=== PATIENT | male | born 1975 | race Caucasian/White ===

== ENCOUNTER 2016-09-17 04:07 | Emergency (ER) | payer OTHER ==
[~2016-09-17] VITALS: Ht 182.9 cm; Wt 138.4 kg
[~2016-09-17 04:07] MED LIST: ASPI325T PO; CARV12.5 PO; LISI-586 PO
[2016-09-17] MEDS ORDERED: CARV12.52 PO (04:21)
[2016-09-17] MEDS ORDERED: ASPI325T PO (04:21)
[2016-09-17] MEDS ORDERED: LISI20TA3 PO (04:21)
[2016-09-17 04:23] VITALS: BP_SYST 183; BP_SYST 202; BP_DIAS 117; BP_DIAS 118; PULSE 80; RESP 18; TEMP 98.4; O2SAT 97
[2016-09-17] MEDS ORDERED: SODIUM CHLORIDE 0.9% FLUSH 5 ML FLUSH IVF PRN (04:45)
[2016-09-17] MEDS ORDERED: ACETAMINOPHEN 325 MG TAB PO ONE (04:45)
[2016-09-17 05:03] VITALS: BP 160/99; PULSE 77; RESP 18; O2SAT 97
[2016-09-17 05:04] LABS: AUTOMATED NEUTROPHIL # 4.7 TH/MM3 (1.8-7.7); BASOPHIL # 0.1 TH/MM3 (0-0.2); BASOPHIL % 0.6 % (0.0-2.0); EOSINOPHIL # 0.2 TH/MM3 (0-0.4); EOSINOPHIL % 1.8 % (0.0-4.0); HEMATOCRIT 40.5 % (39.0-51.0); HEMO FLAGS DIFF FINAL; LYMPH % 37.4 % (9.0-44.0); LYMPHOCYTE # 3.3 TH/MM3 (1.0-4.8); MEAN CELL VOLUME 78.9 FL (80.0-100.0); MEAN CORPUSCULAR HEMOGLOBIN 26.1 PG (27.0-34.0); MEAN CORPUSCULAR HGB CONC 33.1 % (32.0-36.0); NEUT % 54.2 % (16.0-70.0); PLATELET COUNT 242 TH/MM3 (150-450); RED BLOOD COUNT 5.14 MIL/MM3 (4.50-5.90); RED CELL DISTRIBUTION WIDTH 13.9 % (11.6-17.2); WHITE BLOOD COUNT 8.8 TH/MM3 (4.0-11.0)
--- NOTE | 2016-09-17 05:10 | PD ---
HPI Chief Complaint: Hypertension Time Seen by Provider: 05:40 Travel History International Travel<30 days: No Contact w/Intl Traveler<30days: No Traveled to known affect area: No History of Present Illness HPI 40-year-old male presents to the emergency department by private transportation for evaluation of elevated blood pressure. Patient has noted more recently as he falls asleep he gets startled awake and is not sure what triggers this. This morning same thing occurred and he was startled awake as he was trying to fall asleep and checked his blood pressure and noticed it was very elevated. Patient took his blood pressure medications carvedilol and lisonopril-hctz and noted blood pressure remained elevated so decided to come to the emergency room for evaluation. Patient states that he was admitted in March and underwent a cardiac catheterization which revealed no significant coronary vessel disease but was noted to have a decreased ejection fraction of 40-45% and was encouraged to have his blood pressure control optimized as well as have weight loss. Patient is a nonsmoker. Patient does not report family history of premature onset heart disease. Patient states she's been taking the blood pressure that was prescribed for him at time of discharge and has followed up in urgent care but blood pressure medication has not been adjusted for his blood pressures have remained high at the outpatient clinic. Patient is to establish with a new primary care provider in September but has not yet done so. Patient has not lost any weight. Patient remains a nonsmoker. Patient does not presently have any headache confusion and blurred vision double vision loss of vision trouble with his speech trouble with his balance new upper or lower extremity numbness tingling weakness and denies any chest pain palpitations sweats nausea vomiting or shortness of breath. Patient is unable to identify exacerbating or alleviating factors other than noting that sometimes when he is trying to fall asleep he is startled awake [facility] Past Medical History Narrative Medical Hypertension, morbid obesity, cardiac catheterization with minimal coronary vessel disease and EF of 40-45%, inguinal herniorrhaphy; no tobacco use; nursing notes reviewed Arthritis: No Heart Rhythm Problems: No Cancer: No Cardiac Catheterization: Yes (04/12) Cardiovascular Problems: Yes (HTN) High Cholesterol: No Chest Pain: Yes Congestive Heart Failure: No Cerebrovascular Accident: No Diminished Hearing: No Endocrine: No Gastrointestinal Disorders: No GERD: No Genitourinary: No Headaches: No Hiatal Hernia: No Hypertension: Yes Immune Disorder: No Inguinal Hernia: Yes Implanted Vascular Access Dvce: No Musculoskeletal: No Neurologic: No Psychiatric: No Reproductive: No Respiratory: No Immunizations Current: Yes Migraines: No Seizures: No Ulcer: No Past Surgical History Abdominal Surgery: Yes (HERNIA REPAIR) Cardiac Surgery: No Ear Surgery: No Endocrine Surgery: No Eye Surgery: No Genitourinary Surgery: No Gynecologic Surgery: No Neurologic Surgery: No Oral Surgery: No Thoracic Surgery: No Other Surgery: Yes (Bilateral inguinal hernia surgeries) Social History Alcohol Use: No Tobacco Use: No Substance Use: No Allergies-Medications (Allergen,Severity, Reaction): Coded Allergies: No Known Allergies (Unverified , 09/17/16) Reported Meds & Prescriptions Reported Meds & Active Scripts Active Clonidine (Clonidine HCl) 0.1 Mg Tab 0.1 Mg PO Q12HR PRN Reported Lisinopril-Hctz 20-25 Mg Tab 1 Tab PO DAILY Carvedilol 12.5 Mg Tab 12.5 Mg PO BID Aspirin 325 Mg Tab 325 Mg PO DAILY Review of Systems Except as stated in HPI: all other systems reviewed are Neg General / Constitutional: No: Fever, Chills Eyes: No: Visual changes HENT: No: Headaches, Neck Pain Cardiovascular: No: Chest Pain or Discomfort, Diaphoresis, Dyspnea on exertion Respiratory: No: Shortness of Breath Gastrointestinal: No: Nausea, Vomiting, Abdominal Pain Genitourinary: No: Flank Pain Musculoskeletal: No: Myalgias, Arthralgias, Edema, Pain Skin: No Rash Neurologic: No: Weakness, Syncope, Focal Abnormalities, Coordination Problem Psychiatric: Positive: Anxiety Hematologic/Lymphatic: No: Lymph Node Enlargement Physical Exam Narrative GENERAL: Well-developed well-nourished obese male in no acute distress no respiratory distress; GCS 15. SKIN: Warm and dry. HEAD: Atraumatic. Normocephalic. EYES: Pupils equal and round. No scleral icterus. No injection or drainage. ENT: No nasal bleeding or discharge. Mucous membranes pink and moist. NECK: Trachea midline. No JVD. CARDIOVASCULAR: Regular rate and rhythm. RESPIRATORY: No accessory muscle use. Clear to auscultation. Breath sounds equal bilaterally. GASTROINTESTINAL: Abdomen soft, non-tender, nondistended. Hepatic and splenic margins not palpable. MUSCULOSKELETAL: Extremities without clubbing, cyanosis, or edema. No obvious deformities. NEUROLOGICAL: Awake and alert. No obvious cranial nerve deficits. Motor grossly within normal limits. Five out of 5 muscle strength in the arms and legs. Normal speech. PSYCHIATRIC: Appropriate mood and affect; insight and judgment normal. Data Data Last Documented VS Vital Signs Date Time Temp Pulse Resp B/P Pulse Ox O2 Delivery O2 Flow Rate FiO2 09/17/16 05:48 70 18 153/92 98 Room Air 09/17/16 04:23 98.4 Orders Electrocardiogram (09/17/16 04:33) Basic Metabolic Panel (Bmp) (09/17/16 04:33) Ckmb (Isoenzyme) Profile (09/17/16 04:33) Complete Blood Count With Diff (09/17/16 04:33) Magnesium (Mg) (09/17/16 04:33) Prothrombin Time / Inr (Pt) (09/17/16 04:33) Act Partial Throm Time (Ptt) (09/17/16 04:33) Troponin I (09/17/16 04:33) Chest, Single Ap (09/17/16 04:33) Ecg Monitoring (09/17/16 04:33) Bilateral Bp Monitoring (09/17/16 04:33) Iv Access Insert/Monitor (09/17/16 04:33) Oximetry (09/17/16 04:33) Oxygen Administration (09/17/16 04:33) Sodium Chloride 0.9% Flush (Ns Flush) (09/17/16 04:45) Nitroglycerin 2% Oint (Nitroglycerin 2% (09/17/16 06:00) Acetaminophen (Tylenol) (09/17/16 04:45) CKMB (09/17/16 04:50) CKMB% (09/17/16 04:50) Potassium Chloride (Kcl) (09/17/16 05:45) Labs Laboratory Tests Test 09/17/16 04:50 White Blood Count 8.8 TH/MM3 Red Blood Count 5.14 MIL/MM3 Hemoglobin 13.4 GM/DL Hematocrit 40.5 % Mean Corpuscular Volume 78.9 FL Mean Corpuscular Hemoglobin 26.1 PG Mean Corpuscular Hemoglobin 33.1 % Concent Red Cell Distribution Width 13.9 % Platelet Count 242 TH/MM3 Mean Platelet Volume 9.0 FL Neutrophils (%) (Auto) 54.2 % Lymphocytes (%) (Auto) 37.4 % Monocytes (%) (Auto) 6.0 % Eosinophils (%) (Auto) 1.8 % Basophils (%) (Auto) 0.6 % Neutrophils # (Auto) 4.7 TH/MM3 Lymphocytes # (Auto) 3.3 TH/MM3 Monocytes # (Auto) 0.5 TH/MM3 Eosinophils # (Auto) 0.2 TH/MM3 Basophils # (Auto) 0.1 TH/MM3 CBC Comment DIFF FINAL Differential Comment Prothrombin Time 10.7 SEC Prothromb Time International 1.0 RATIO Ratio Activated Partial 30.6 SEC Thromboplast Time Sodium Level 140 MEQ/L Potassium Level 3.3 MEQ/L Chloride Level 104 MEQ/L Carbon Dioxide Level 27.0 MEQ/L Anion Gap 9 MEQ/L Blood Urea Nitrogen 14 MG/DL Creatinine 1.00 MG/DL Estimat Glomerular Filtration 83 ML/MIN Rate Random Glucose 114 MG/DL Calcium Level 8.5 MG/DL Magnesium Level 2.4 MG/DL Total Creatine Kinase 205 U/L Creatine Kinase MB 1.3 NG/ML Troponin I LESS THAN 0.02 NG/ML MDM Medical Decision Making Medical Screen Exam Complete: Yes Emergency Medical Condition: Yes Medical Record Reviewed: Yes Interpretation(s) EKG normal sinus rhythm rate [address] elevation; artifact is present at baseline CBC & BMP Diagram 09/17/16 04:50 Last Impressions Chest X-Ray 09/17/16 0433 Signed Impressions: Service Date/Time: Saturday, September 17, 2016 05:02 - CONCLUSION: Compressive changes or atelectasis at the left base. Howard Rivas MD Troponin I less than 0.02, not elevated CK total 205 with MB percent of 0.6%, not elevated Differential Diagnosis Hypertension, hypertensive urgency, sleep apnea, ACS Narrative Course Patient placed on clinical research monitor IV access obtained EKG performed shows basilar artifact but sinus rhythm rate [address] elevation or ectopy Patient was noted to be hypertensive Nitropaste 1 inch was applied to the chest wall At 5:50 AM blood pressure has improved 150/92; patient feels well voicing no concerns or complaints. Patient has been monitored without evidence of ectopy or recurrence of filling startle. He should is encouraged to follow-up with his current primary care provider and keep appointment with his new primary care provider. Patient is encouraged to return the emergency department for any concerns or change in condition. Patient will be given as needed prescription for clonidine to take for blood pressure greater than 160/90 on an as-needed basis. Patient needs to follow-up with his primary care clinic doctor at this time to have his current blood pressure medication dosing adjusted. Diagnosis Primary Impression: Poorly controlled blood pressure Additional Impressions: HTN (hypertension) Qualified Code: I10 - Essential hypertension Hypokalemia Referrals: Primary Care Physician 1 day Patient Instructions: General Instructions Additional Instructions: Follow-up with your current clinic primary care provider Keep appointment with your new Primary care provider as scheduled Continue current blood pressure medication as prescribed; use new blood pressure medication on an as-needed basis for blood pressure is 160/90 Return to the emergency department for any concerns or change in condition Add potassium containing foods and beverages to dietary intake Med/Other Pt SpecificInfo: Prescription(s) given Scripts Clonidine 0.1 Mg Tab0.1 Mg PO Q12HR PRN (SBP>160, DBP>90) #6 TAB Ref 0 Prov:Stephanie Sung MD 09/17/16 Disposition: 01 DISCHARGE HOME Condition: Stable Stephanie Sung MD Sep 17, 2016 05:10
[2016-09-17 05:14] LABS: CHLORIDE 104 MEQ/L (98-107); POTASSIUM 3.3 MEQ/L (3.5-5.1); SODIUM (NA) 140 MEQ/L (136-145)
--- NOTE | 2016-09-17 05:15 | RADHPO ---
EXAM DATE/TIME: 09/17/2016 05:02 [facility] COMPARISON: CHEST SINGLE AP, April 30, 2016, 14:18. INDICATIONS : High blood pressure. MEDICAL HISTORY : Hypertension. SURGICAL HISTORY : Inguinal hernia repair. ENCOUNTER: Initial ACUITY: 1 day PAIN SCORE: 0/10 LOCATION: Bilateral chest FINDINGS: The heart size is normal. There is minimal increased density left base. Right lung is clear. The stud y is taken with poor inspiratory effort. CONCLUSION: Compressive changes or atelectasis at the left base. Howard Rivas MD on September 17, 2016 at 5:13 Board Certified Radiologist. This report was verified electronically.
[2016-09-17 05:17] LABS: ANION GAP 9 MEQ/L (5-15)
[2016-09-17 05:18] LABS: BLOOD UREA NITROGEN 14 MG/DL (7-18); MAGNESIUM 2.4 MG/DL (1.5-2.5)
[2016-09-17 05:21] LABS: GLOMERULAR FILTRATION RATE 83 ML/MIN (>89)
[2016-09-17 05:24] LABS: CREATINE KINASE 205 U/L (39-308)
[2016-09-17 05:37] LABS: CKMB 1.3 NG/ML (0.5-3.6)
[2016-09-17 05:43] LABS: APTT (PATIENT) 30.6 SEC (24.3-30.1); PROTHROMBIN TIME - PATIENT 10.7 SEC (9.8-11.6)
[2016-09-17] MEDS ORDERED: POTASSIUM CHLORIDE 20 MEQ CONTROLLED RELEASE TAB PO ONE (05:45)
[2016-09-17 05:48] VITALS: BP 153/92; PULSE 70; RESP 18; O2SAT 98
[2016-09-17] MEDS ORDERED: CLON0.1T PO (05:51)
[2016-09-17] MEDS ORDERED: NITROGLYCERIN 2% OINT 1 GM PACKET TOPICAL SCH (06:00)
[2016-09-17 06:08] VITALS: BP 138/93; PULSE 74; RESP 18; O2SAT 98
--- NOTE | 2016-09-17 17:07 | EKG ---
Date Performed: 09/17/2016 Time Performed: 04:40:24 PTAGE: 40 years EKG: Sinus rhythm . Leftward axis Lateral ST-T changes may be due to myocardial ischemia Since previous tracing, no sig nificant change noted Abnormal ECG PREVIOUS TRACING : 04/30/2016 14.18 DOCTOR: Ayo Thomas Interpretating Date/Time 09/17/2016 17:06:14
== END 2016-09-17 07:04 | disposition home or self-care (01) ==
LOC: PHEFT 04:07
DX: I10 Essential (primary) hypertension (principal); E87.6 Hypokalemia; R94.31 Abnormal electrocardiogram [ECG] [EKG]; E66.01 Morbid (severe) obesity due to excess calories
CPT/HCPCS: 71010; 80048; 82550; 82552; 83735; 84484; 85025; 85610; 85730; 93005

== ENCOUNTER 2016-10-31 04:11 | Emergency (ER) | payer OTHER ==
[2016-10-31] VITALS (11 sets, daily range): BP systolic 155–185; BP diastolic 85–125; PULSE 56–74; RESP 16–18; TEMP 97.3; O2SAT 95–97
[~2016-10-31] VITALS: Ht 182.9 cm; Wt 136.0 kg
[~2016-10-31 04:11] MED LIST changes: -CARV12.5 PO; +CARV12.52 PO; +CLON0.1T PO; -LISI-586 PO; +LISI20TA3 PO
[2016-10-31] MEDS ORDERED: ONDANSETRON HCL 4 MG/2 ML VIAL IV PUSH ONE (05:15)
[2016-10-31] MEDS ORDERED: SODIUM CHLORIDE 0.9% FLUSH 10 ML FLUSH IVF PRN (05:15)
[2016-10-31] MEDS ORDERED: LABETALOL HCL 100 MG/20 ML VIAL IV PUSH ONE (05:15)
[2016-10-31] MEDS ORDERED: HYDROmorphone HCL PF 1 MG/ML VIAL IV PUSH ONE (05:15)
[2016-10-31] MEDS: NITROGLYCERIN 0.4 MG SL 25 TABS/BTL SL SCH ×3 (05:25→06:32)
[2016-10-31] MEDS ORDERED: hydrALAZINE HCL 20 MG/ML VIAL IV PUSH ONE (05:30)
--- NOTE | 2016-10-31 05:32 | PD ---
HPI . Chief Complaint: Musculoskeletal Complaint Time Seen by Provider: 05:04 Travel History International Travel<30 days: No Contact w/Intl Traveler<30days: No Traveled to known affect area: No History of Present Illness HPI 40-year-old male presents to the emergency department for complaint of neck pain and left arm pain. Patient states around 11:00 PM he is started noticing severe pain in his neck and radiating into his left arm. Patient denies any other cord positioning, injury, or prior neck complaints. Patient states pain does go into his back. No chest pain or shortness of breath. No nausea or vomiting. No abdominal pain. Patient has hypertension and has been taking his blood pressure medication as prescribed. Patient has been seen in the past for cardiac complaints and chest pain headache stress test that was abnormal underwent cardiac catheterization which revealed no obstructing coronary vessel disease. Recommendation was for type medical control of patient's blood pressure. Patient had the emergency department since his cardiac catheterization for issues with blood pressure elevation. Patient denies sudden onset worst ever headache change in mentation or visual disturbance. Patient's had no change in speech no facial droop and no upper extremity lower extremity numbness tingling or weakness. Patient rates his left neck pain and arm pain as 10 over 10 intensity. Patient is not reporting any worsening of symptoms with range of motion. Patient reports that spouse gave him ibuprofen without relief and took aspirin prior to arrival to the emergency department. PFSH Past Medical History Arthritis: No Heart Rhythm Problems: No Cancer: No Cardiac Catheterization: Yes (04/12) Cardiovascular Problems: Yes High Cholesterol: No Chest Pain: Yes Congestive Heart Failure: No Cerebrovascular Accident: No Diminished Hearing: No Endocrine: No Gastrointestinal Disorders: No GERD: No Genitourinary: No Headaches: No Hiatal Hernia: No Hypertension: Yes Immune Disorder: No Inguinal Hernia: Yes Implanted Vascular Access Dvce: No Musculoskeletal: No Neurologic: No Psychiatric: No Reproductive: No Respiratory: No Immunizations Current: Yes Migraines: No Seizures: No Ulcer: No Tetanus Vaccination: < 5 Years Influenza Vaccination: No Past Surgical History Abdominal Surgery: Yes (HERNIA REPAIR) Cardiac Surgery: No Ear Surgery: No Endocrine Surgery: No Eye Surgery: No Genitourinary Surgery: No Gynecologic Surgery: No Neurologic Surgery: No Oral Surgery: No Thoracic Surgery: No Other Surgery: Yes (Bilateral inguinal hernia surgeries) Social History Alcohol Use: No Tobacco Use: No Substance Use: No Allergies-Medications (Allergen,Severity, Reaction): Coded Allergies: No Known Allergies (Unverified , 09/17/16) Reported Meds & Prescriptions Reported Meds & Active Scripts Active Reported Lisinopril-Hctz 20-25 Mg Tab 1 Tab PO DAILY Carvedilol 12.5 Mg Tab 12.5 Mg PO BID Aspirin 325 Mg Tab 325 Mg PO DAILY Review of Systems Except as stated in HPI: all other systems reviewed are Neg General / Constitutional: No: Fever, Chills Eyes: No: Visual changes HENT: Positive: Neck Pain, No: Headaches, Neck Stiffness Cardiovascular: No: Chest Pain or Discomfort, Diaphoresis, Syncope, Dyspnea on exertion, Edema Respiratory: No: Cough, Shortness of Breath, Wheezing Gastrointestinal: No: Nausea, Vomiting, Abdominal Pain Genitourinary: No: Flank Pain Musculoskeletal: Positive: Myalgias, Arthralgias, Pain Skin: No Rash Neurologic: No: Weakness, Dizziness, Syncope, Focal Abnormalities Psychiatric: No: Anxiety Hematologic/Lymphatic: No: Easy Bruising Physical Exam Narrative GENERAL: Well-developed well-nourished male in no acute distress no respiratory distress; GCS 15 SKIN: Warm and dry. HEAD: Atraumatic. Normocephalic. EYES: Pupils equal and round. No scleral icterus. No injection or drainage. ENT: No nasal bleeding or discharge. Mucous membranes pink and moist. NECK: Trachea midline. No JVD. CARDIOVASCULAR: Regular rate and rhythm. RESPIRATORY: No accessory muscle use. Clear to auscultation. Breath sounds equal bilaterally. GASTROINTESTINAL: Abdomen soft, non-tender, nondistended. Hepatic and splenic margins not palpable. MUSCULOSKELETAL: Extremities without clubbing, cyanosis, or edema. No obvious deformities. NEUROLOGICAL: Awake and alert. No obvious cranial nerve deficits. Motor grossly within normal limits. Five out of 5 muscle strength in the arms and legs. Normal speech. PSYCHIATRIC: Appropriate mood and affect; insight and judgment normal. Data Data Last Documented VS Vital Signs Date Time Temp Pulse Resp B/P Pulse Ox O2 Delivery O2 Flow Rate FiO2 10/31/16 08:55 60 16 156/87 96 Room Air 10/31/16 04:19 97.3 Orders Electrocardiogram (10/31/16 05:05) Basic Metabolic Panel (Bmp) (10/31/16 05:05) Ckmb (Isoenzyme) Profile (10/31/16 05:05) Complete Blood Count With Diff (10/31/16 05:05) Magnesium (Mg) (10/31/16 05:05) Prothrombin Time / Inr (Pt) (10/31/16 05:05) Act Partial Throm Time (Ptt) (10/31/16 05:05) Troponin I (10/31/16 05:05) Chest, Single Ap (10/31/16 05:05) Ecg Monitoring (10/31/16 05:05) Bilateral Bp Monitoring (10/31/16 05:05) Iv Access Insert/Monitor (10/31/16 05:05) Oximetry (10/31/16 05:05) Oxygen Administration (10/31/16 05:05) Sodium Chloride 0.9% Flush (Ns Flush) (10/31/16 05:15) Nitroglycerin Sl (Nitrostat Sl) (10/31/16 05:15) Cta Thor Abd Aorta W Iv C W3d (10/31/16 05:05) Labetalol Inj (Trandate Inj) (10/31/16 05:15) Ondansetron Inj (Zofran Inj) (10/31/16 05:15) Hydromorphone Pf Inj (Dilaudid Pf Inj) (10/31/16 05:15) Hydralazine Inj (Apresoline Inj) (10/31/16 05:30) CKMB (10/31/16 05:20) CKMB% (10/31/16 05:20) Iohexol 350 Inj (Omnipaque 350 Inj) (10/31/16 06:13) Enalaprilat Inj (Vasotec Inj) (10/31/16 06:45) Amlodipine (Norvasc) (10/31/16 07:45) Labs Laboratory Tests Test 10/31/16 05:20 White Blood Count 10.2 TH/MM3 Red Blood Count 4.97 MIL/MM3 Hemoglobin 13.3 GM/DL Hematocrit 39.5 % Mean Corpuscular Volume 79.4 FL Mean Corpuscular Hemoglobin 26.7 PG Mean Corpuscular Hemoglobin 33.6 % Concent Red Cell Distribution Width 14.3 % Platelet Count 214 TH/MM3 Mean Platelet Volume 9.3 FL Neutrophils (%) (Auto) 62.1 % Lymphocytes (%) (Auto) 31.1 % Monocytes (%) (Auto) 4.8 % Eosinophils (%) (Auto) 1.2 % Basophils (%) (Auto) 0.8 % Neutrophils # (Auto) 6.3 TH/MM3 Lymphocytes # (Auto) 3.2 TH/MM3 Monocytes # (Auto) 0.5 TH/MM3 Eosinophils # (Auto) 0.1 TH/MM3 Basophils # (Auto) 0.1 TH/MM3 CBC Comment DIFF FINAL Differential Comment Prothrombin Time 10.7 SEC Prothromb Time International 1.0 RATIO Ratio Activated Partial 29.6 SEC Thromboplast Time Sodium Level 141 MEQ/L Potassium Level 3.6 MEQ/L Chloride Level 106 MEQ/L Carbon Dioxide Level 26.2 MEQ/L Anion Gap 9 MEQ/L Blood Urea Nitrogen 16 MG/DL Creatinine 0.91 MG/DL Estimat Glomerular Filtration 93 ML/MIN Rate Random Glucose 110 MG/DL Calcium Level 8.9 MG/DL Magnesium Level 2.4 MG/DL Total Creatine Kinase 109 U/L Creatine Kinase MB 0.9 NG/ML Troponin I LESS THAN 0.02 NG/ML Exceptions Acute Myocardial Infarction ASA Not Given on Arrival: Already taken by patient MDM Medical Decision Making Medical Screen Exam Complete: Yes Emergency Medical Condition: Yes Medical Record Reviewed: Yes Interpretation(s) EKG normal sinus rhythm rate [address]-T changes may be due to ischemia no ST elevation injury pattern changes noted since 03/2016 CBC with automated differential: Values in normal range Coagulation studies within normal limits CK total 109, not elevated; troponin I less than 0.02, not elevated CMP: wnl CTA thoracic/abd:FINDINGS: Thoracic/abdominal aorta: The thoracic and abdominal aorta is normal in caliber and course. No dissection or aneurysm. A two-vessel arch is observed. The arch vessels are patent. The celiac, SMA, CORKY, and renal arteries are patent. In-Flow vessels are patent. Heart and mediastinum: The heart is normal in size. No pericardial effusion. Ulnar arteries are normal in caliber. No mass or adenopathy. Lung parenchyma: Lung parenchyma is clear with exception of minimal atelectasis within the lingula. No effusions. Other structures: Abdominal viscera is unremarkable. Musculoskeletal structures are unremarkable. CONCLUSION: Normal examination. Lio Narvaez Jr., MD on October 31, 2016 at 6:46 Board Certified Radiologist. This report was verified electronically. Last Impressions Chest X-Ray 10/31/16 0505 Signed Impressions: Service Date/Time: October 05:47 - CONCLUSION: Normal examination. Lio Narvaez Jr., MD Aorta CTA 10/31/16 0505 Signed Impressions: Service Date/Time: October 06:03 - CONCLUSION: Normal examination. Lio Narvaez Jr., MD CBC & BMP Diagram 10/31/16 05:20 Vital Signs Date Time Temp Pulse Resp B/P Pulse Ox O2 Delivery O2 Flow Rate FiO2 10/31/16 06:23 74 18 168/102 96 Room Air 171/100 10/31/16 06:01 73 16 183/107 96 Room Air 10/31/16 06:00 16 10/31/16 05:59 71 16 163/107 95 Room Air 10/31/16 05:40 65 16 173/106 97 Room Air 10/31/16 04:53 72 18 185/113 96 Room Air 10/31/16 04:35 18 10/31/16 04:19 97.3 66 16 179/125 96 Differential Diagnosis Neck pain, aortic dissection, HNP, cervical radiculopathy, accelerated hypertension, hypertensive crisis, acs, SD, musculoskeletal pain Narrative Course Patient placed on case monitor IV access obtained specimens collected and sent for resulting aspirin artery taken by patient prior to arrival to the emergency department; patient written for several nitroglycerin 0.4 mg up to 3 doses for response for pain relief as well as Zofran 4 mg IV and Dilaudid 1 mg IV; labetalol 10 mg IV ordered Patient's heart rate 60 therefore change blood pressure medication to hydralazine 10 mg IV @ 07:15 call placed to [facility] station installer and repairer; BP: down to 149/95; at the bedside reports "cold symptoms" x 1 week; had been using OTC nyquil for head cold symptoms; no fever denies other nasal or oral decongestants--patient reports no nyquil for >24 hours Discussed with patient admission for ongoing management of blood pressure although appears to be responding well to interventions has no pain at this time neck pain was positional with range of motion; CT reveals no evidence of dissection; EKG no acute injury pattern; cardiac enzymes are normal range; patient admits that he did not fill his prescription for amlodipine. Case has been discussed with on-call [facility] physician who can see patient as an outpatient. Patient desirous of outpatient management and does not want admission. As patient is asymptomatic blood pressure is markedly improved and morning dose of amlodipine administered will agree with outpatient trial and patient again encouraged to take his medications as prescribed and comply with close follow- up with primary care provider. Critical Care Narrative Aggregate critical care time was 40 minutes. Time to perform other separately billable procedures was not included in the critical care time. My time did not include minutes spent treating any other patients simultaneously or on activities that did not directly contribute to the patient's treatment. The services I provided to this patient were to treat and/or prevent clinically significant deterioration that could result in: Myocardial infarction, CVA, I provided critical care services requiring my management, as noted below: Chart data review, documentation time, medication orders and management, vital sign assessments/reviewing monitor data, ordering and reviewing lab tests, ordering and interpreting/reviewing x-rays and diagnostic studies, care of the patient and discussion of the patient with the admitting physicians. Physician Communication Physician Communication discussed with Dr Huerta Diagnosis Primary Impression: Poorly controlled blood pressure Additional Impressions: Adverse effects of medication Qualified Code: T88.7XXA - Adverse effects of medication, initial encounter Cervical radiculopathy URI (upper respiratory infection) Qualified Code: J06.9 - Upper respiratory tract infection, unspecified type Referrals: Lucila Ngo MD 1 day Patient Instructions: General Instructions Additional Instructions: NO use of Nyquil or other over the counter cold medications except if needed may use Coricedin HBP continue your current blood pressure including your new BP medication norvasc/ amlodipine No work times one day Return to the emergency department for any concerns or change in condition May use as tolerated ibuprofen/Advil/Motrin 800 mg as often as every 8 hours for pain associated with inflammation or for fever 100.4F or greater Stephanie Sung MD Oct 31, 2016 05:31
[2016-10-31 05:38] LABS: AUTOMATED NEUTROPHIL # 6.3 TH/MM3 (1.8-7.7); BASOPHIL # 0.1 TH/MM3 (0-0.2); BASOPHIL % 0.8 % (0.0-2.0); EOSINOPHIL # 0.1 TH/MM3 (0-0.4); EOSINOPHIL % 1.2 % (0.0-4.0); HEMATOCRIT 39.5 % (39.0-51.0); HEMO FLAGS DIFF FINAL; LYMPH % 31.1 % (9.0-44.0); LYMPHOCYTE # 3.2 TH/MM3 (1.0-4.8); MEAN CELL VOLUME 79.4 FL (80.0-100.0); MEAN CORPUSCULAR HEMOGLOBIN 26.7 PG (27.0-34.0); MEAN CORPUSCULAR HGB CONC 33.6 % (32.0-36.0); MONO % 4.8 % (0.0-8.0); NEUT % 62.1 % (16.0-70.0); PLATELET COUNT 214 TH/MM3 (150-450); RED BLOOD COUNT 4.97 MIL/MM3 (4.50-5.90); RED CELL DISTRIBUTION WIDTH 14.3 % (11.6-17.2); WHITE BLOOD COUNT 10.2 TH/MM3 (4.0-11.0)
[2016-10-31 05:48] LABS: CHLORIDE 106 MEQ/L (98-107); POTASSIUM 3.6 MEQ/L (3.5-5.1); SODIUM (NA) 141 MEQ/L (136-145)
[2016-10-31 05:52] LABS: ANION GAP 9 MEQ/L (5-15); APTT (PATIENT) 29.6 SEC (24.3-30.1); BICARBONATE 26.2 MEQ/L (21.0-32.0); MAGNESIUM 2.4 MG/DL (1.5-2.5); PROTHROMBIN TIME - PATIENT 10.7 SEC (9.8-11.6)
[2016-10-31 05:53] LABS: BLOOD UREA NITROGEN 16 MG/DL (7-18)
[2016-10-31 05:56] LABS: GLOMERULAR FILTRATION RATE 93 ML/MIN (>89)
[2016-10-31 05:59] LABS: CREATINE KINASE 109 U/L (39-308)
[2016-10-31 06:12] LABS: CKMB 0.9 NG/ML (0.5-3.6)
[2016-10-31] MEDS ORDERED: IOHEXOL 350 MG/ML 10 ML VIAL (for RAD DIAG) IV ONE (06:13)
--- NOTE | 2016-10-31 06:19 | RADHPO ---
EXAM DATE/TIME: 10/31/2016 05:47 [facility] COMPARISON: CHEST SINGLE AP, September 17, 2016, 5:02. INDICATIONS : Chest pain irradiating up through neck. MEDICAL HISTORY : Hypertension. SURGICAL HISTORY : Inguinal hernia repair. ENCOUNTER: Initial ACUITY: 1 day PAIN SCORE: 6/10 LOCATION: Bilateral upper chest FINDINGS: A single view of the chest demonstrates the lungs to be symmetrically aerated without evidence of mas s, infiltrate or effusion. The cardiomediastinal contours are unremarkable. Osseous structures are intact. CONCLUSION: Normal examination. Lio Narvaez Jr., MD on October 31, 2016 at 6:17 Board Certified Radiologist. This report was verified electronically.
[2016-10-31] MEDS: ENALAPRILAT 1.25 MG/ML VIAL IV PUSH ONE ×2 (06:45→07:59)
--- NOTE | 2016-10-31 06:50 | RADHPO ---
EXAM DATE/TIME: 10/31/2016 06:03 [facility] COMPARISON: No previous studies available for comparison. INDICATIONS : Neck pain that radiates down left arm. IV CONTRAST: 100 cc Omnipaque 350 (iohexol) IV RADIATION DOSE: 26.33 CTDIvol (mGy) MEDICAL HISTORY : Hypertension. Hernia, inguinal. SURGICAL HISTORY : Inguinal hernia repair. Cardiac catheterization. ENCOUNTER: Initial ACUITY: 1 day PAIN SCALE: 8/10 LOCATION: Left neck TECHNIQUE: Volumetric scanning was performed using a multi-row detector CT scanner. The data was post processed with a variety of visualization algorithms including full volume maximum intensity projection, multi -planar sliding thin slab reformation, curved planar reformation, and surface rendering techniques. Using automated exposure control and adjustment of the mA and/or kV according to patient size, radiat ion dose was kept as low as reasonably achievable to obtain optimal diagnostic quality images. FINDINGS: Thoracic/abdominal aorta: The thoracic and abdominal aorta is normal in caliber and course. No dissection or aneurysm. A two-ve ssel arch is observed. The arch vessels are patent. The celiac, SMA, CORKY, and renal arteries are mcarthur nt. In-Flow vessels are patent. Heart and mediastinum: The heart is normal in size. No pericardial effusion. Ulnar arteries are normal in caliber. No mass o r adenopathy. Lung parenchyma: Lung parenchyma is clear with exception of minimal atelectasis within the lingula. No effusions. Other structures: Abdominal viscera is unremarkable. Musculoskeletal structures are unremarkable. CONCLUSION: Normal examination. Lio Narvaez Jr., MD on October 31, 2016 at 6:46 Board Certified Radiologist. This report was verified electronically.
[2016-10-31] MEDS ORDERED: amLODIPine BESYLATE 5 MG TAB PO ONE (07:45)
--- NOTE | 2016-10-31 10:20 | EKG ---
Date Performed: 10/31/2016 Time Performed: 05:44:24 PTAGE: 40 years EKG: Sinus rhythm Lateral ST-T changes may be due to myocardial ischemia Abnormal ECG PREVIOUS TRACING : 09/17/2016 04.40 Compared to prior tracing no significant change DOCTOR: Cirilo Daigle Interpretating Date/Time 10/31/2016 10:19:08
== END 2016-10-31 09:02 | disposition home or self-care (01) ==
LOC: PHED 04:11
DX: I10 Essential (primary) hypertension (principal); T88.7XXA Unspecified adverse effect of drug or medicament, initial encounter; M54.12 Radiculopathy, cervical region; J06.9 Acute upper respiratory infection, unspecified; R94.31 Abnormal electrocardiogram [ECG] [EKG]; Z86.79 Personal history of other diseases of the circulatory system
CPT/HCPCS: 71010; 71275; 74174; 80048; 82550; 82552; 83735; 84484; 85025; 85610; 85730; 93005; 96374; 96375; 99285; J0360; J1170; J2405; Q9967

== ENCOUNTER 2016-11-07 09:14 | Emergency (ER) | payer OTHER ==
[~2016-11-07] VITALS: Ht 182.9 cm; Wt 135.0 kg
[~2016-11-07 09:14] MED LIST changes: -CLON0.1T PO
[2016-11-07 09:16] VITALS: BP 179/119; PULSE 72; RESP 18; TEMP 97.8; O2SAT 99
[2016-11-07] MEDS ORDERED: AMLO2.5T PO (09:32)
--- NOTE | 2016-11-07 09:37 | PD ---
HPI Chief Complaint: neck pain Time Seen by Provider: 09:23 Travel History International Travel<30 days: No Contact w/Intl Traveler<30days: No Traveled to known affect area: No History of Present Illness HPI This 40-year-old male is complaining of pain in his neck. His been having this pain for several days. He came Friday because of the pain but that time his blood pressure was quite elevated. He had a CT scan done of his aorta which was normal. He has been seeing his primary care doctor to get his blood pressure down. The pain has been quite severe. It is on the midline of the neck extending along the trapezius to the left shoulder. It has not responded to muscle relaxers at all. He has also taken Motrin for the pain He does not have numbness or tingling in his arms or his legs. He has had no trouble with urination. The pain is worse with full rotation of the head to the right or the left. There is no pain on the right side of the neck. He says he did not sleep last night due to the pain. He does not recall any injury to the neck has been no recent motor vehicle accidents PFSH Past Medical History Arthritis: No Heart Rhythm Problems: No Cancer: No Cardiac Catheterization: Yes (04/12) Cardiovascular Problems: Yes (HTN) High Cholesterol: No Chest Pain: Yes Congestive Heart Failure: No Cerebrovascular Accident: No Diminished Hearing: No Endocrine: No Gastrointestinal Disorders: No GERD: No Genitourinary: No Headaches: No Hiatal Hernia: No Hypertension: Yes Immune Disorder: No Inguinal Hernia: Yes Implanted Vascular Access Dvce: No Musculoskeletal: No Neurologic: No Psychiatric: No Reproductive: No Respiratory: No Immunizations Current: Yes Migraines: No Seizures: No Ulcer: No Past Surgical History Abdominal Surgery: Yes (HERNIA REPAIR) Cardiac Surgery: No Ear Surgery: No Endocrine Surgery: No Eye Surgery: No Genitourinary Surgery: No Gynecologic Surgery: No Neurologic Surgery: No Oral Surgery: No Thoracic Surgery: No Other Surgery: Yes (Bilateral inguinal hernia surgeries) Social History Alcohol Use: No Tobacco Use: No Substance Use: No Allergies-Medications (Allergen,Severity, Reaction): Coded Allergies: No Known Allergies (Unverified , 11/07/16) Reported Meds & Prescriptions Reported Meds & Active Scripts Active Reported Amlodipine (Amlodipine Besylate) 2.5 Mg Tab 0.5 Mg PO BID Lisinopril-Hctz 20-25 Mg Tab 1 Tab PO DAILY Carvedilol 12.5 Mg Tab 12.5 Mg PO BID Aspirin 325 Mg Tab 325 Mg PO DAILY Review of Systems General / Constitutional: No: Fever, Chills Eyes: No: Diploplia, Blurred Vision HENT: Positive: Neck Pain, No: Headaches, Vertigo Cardiovascular: No: Chest Pain or Discomfort, Palpitations Respiratory: No: Cough, Shortness of Breath Gastrointestinal: No: Nausea, Vomiting Genitourinary: No: Urgency, Frequency Musculoskeletal: Positive: Myalgias, Pain Skin: No Rash, No Itching Physical Exam Narrative GENERAL: Well-developed male. He is uncomfortable with this pain SKIN: Focused skin assessment warm/dry. HEAD: Atraumatic. Normocephalic. EYES: Pupils equal and round. No scleral icterus. No injection or drainage. ENT: No nasal bleeding or discharge. Mucous membranes pink and moist. NECK: Trachea midline. No JVD. There is some tenderness of the neck posteriorly. There is no discernible swelling. He has pain from the midline to the shoulder of the trapezius CARDIOVASCULAR: Regular rate and rhythm. No murmur appreciated. RESPIRATORY: No accessory muscle use. Clear to auscultation. Breath sounds equal bilaterally. GASTROINTESTINAL: Abdomen soft, non-tender, nondistended. Hepatic and splenic margins not palpable. MUSCULOSKELETAL: No obvious deformities. No clubbing. No cyanosis. No edema. NEUROLOGICAL: Awake and alert. No obvious cranial nerve deficits. Motor grossly within normal limits. Normal speech. There is equal sensation of the arms bilaterally. There is equal band cutter strength he is able to extend the wrist bilaterally PSYCHIATRIC: Appropriate mood and affect; insight and judgment normal. Data Data Last Documented VS Vital Signs Date Time Temp Pulse Resp B/P Pulse Ox O2 Delivery O2 Flow Rate FiO2 11/07/16 10:26 65 20 138/87 98 11/07/16 09:16 97.8 Orders Oxycodone-Acetamin 5-325 Mg (Percocet (11/07/16 09:45) Ct Cerv Spine W/O Contrast (11/07/16 09:32) MDM Medical Decision Making Medical Screen Exam Complete: Yes Emergency Medical Condition: Yes Medical Record Reviewed: Yes Differential Diagnosis Differential includes cervical strain, radiculopathy, bony abnormality Narrative Course CT scan of the neck has been done and shows no evidence of acute bony or soft tissue abnormality. Patient is having considerable pain and I will prescribe some Percocet for his pain. To follow-up with his own medical doctor. He was given Percocet in the ER with good response Diagnosis Primary Impression: Cervical radiculopathy Scripts Oxycodone-Acetaminophen (Percocet)7.5-325 mg Tab1 Tab PO Q4H PRN (PAIN) #30 TAB Ref 0 Prov:Khurram Capellan MD 11/07/16 Disposition: DISCHARGE HOME Condition: Stable Khurram Capellan MD Nov 07, 2016 09:36
[2016-11-07] MEDS ORDERED: oxyCODONE/ACETAMINOPHEN 5 MG/325 MG TAB PO ONE (09:45)
[2016-11-07 10:26] VITALS: BP 138/87; PULSE 65; RESP 20; O2SAT 98
--- NOTE | 2016-11-07 11:04 | RADHPO ---
EXAM DATE/TIME: 11/07/2016 10:04 [facility] COMPARISON: No previous studies available for comparison. INDICATIONS : Left pain with radiculopathy. RADIATION DOSE: 26.64 CTDIvol (mGy) MEDICAL HISTORY : None SURGICAL HISTORY : None. ENCOUNTER: Initial ACUITY: 1 week PAIN SCALE: 4/10 LOCATION: Left neck TECHNIQUE: Volumetric scanning of the cervical spine was performed. Multiplanar reconstructions in the sagittal, coronal and oblique axial planes were performed. Using automated exposure control and adjustment o f the mA and/or kV according to patient size, radiation dose was kept as low as reasonably achievable to obtain optimal diagnostic quality images. FINDINGS: Axial tomograms with multiplanar reformats were performed of the cervical spine without contrast. The craniocervical and cervical vertebral body alignment is intact. Vertebral bodies and posterior el ements are intact. The facet joints are satisfactory aligned. There are no soft tissue abnormalities. CONCLUSION: Normal CT of the cervical spine. No evidence of acute bony or soft tissue abnormality. Itz Keita MD on November 07, 2016 at 11:00 Board Certified Radiologist. This report was verified electronically.
[2016-11-07] MEDS ORDERED: PERC7.5T13 PO (11:12)
== END 2016-11-07 11:20 | disposition home or self-care (01) ==
LOC: PHED 09:14
DX: M54.12 Radiculopathy, cervical region (principal); I10 Essential (primary) hypertension
CPT/HCPCS: 72125

== ENCOUNTER 2016-11-24 19:41 | Emergency (ER) | payer OTHER ==
[~2016-11-24] VITALS: Ht 177.8 cm; Wt 99.0 kg
[~2016-11-24 19:41] MED LIST changes: +AMLO2.5T PO; +PERC7.5T13 PO
[2016-11-24 19:43] VITALS: BP 168/107; PULSE 72; RESP 16; TEMP 98.7; O2SAT 97
--- NOTE | 2016-11-24 19:55 | PD ---
Physical Exam Date Seen by Provider: Nov 24, 2016 Time Seen by Provider: 19:50 Narrative 40 y/o male with 3 week Hx. left shoulder and neck pain that is persistent despite previous Work-up including CT scan and ongoing treatment with Muscle relaxants and pain pills. Now C/O chest discomfort. Has also been going to Chiropractor and PT. Has seen Primary 4 times, Dr. Rob. No Fever Chills, Heartburn or SOB. Patient has had Cardiac Cath in 2016 with no blockage. V/S reviewed. Protocol ordered. Awaiting bed placement. Data Data Last Documented VS Vital Signs Date Time Temp Pulse Resp B/P Pulse Ox O2 Delivery O2 Flow Rate FiO2 11/24/16 19:43 98.7 72 16 168/107 97 MDM Medical Record Reviewed: Yes Supervised Visit with KIERSTEN: Yes Condition: Stable Jose Swift Nov 24, 2016 19:55
[2016-11-24 20:40] LABS: AUTOMATED NEUTROPHIL # 7.5 TH/MM3 (1.8-7.7); BASOPHIL # 0.1 TH/MM3 (0-0.2); BASOPHIL % 0.6 % (0.0-2.0); EOSINOPHIL # 0.2 TH/MM3 (0-0.4); EOSINOPHIL % 1.7 % (0.0-4.0); HEMATOCRIT 39.8 % (39.0-51.0); HEMO FLAGS DIFF FINAL; LYMPHOCYTE # 3.1 TH/MM3 (1.0-4.8); MEAN CELL VOLUME 77.9 FL (80.0-100.0); MEAN CORPUSCULAR HEMOGLOBIN 26.2 PG (27.0-34.0); MEAN CORPUSCULAR HGB CONC 33.6 % (32.0-36.0); MONO % 6.4 % (0.0-8.0); NEUT % 64.3 % (16.0-70.0); PLATELET COUNT 259 TH/MM3 (150-450); RED BLOOD COUNT 5.11 MIL/MM3 (4.50-5.90); WHITE BLOOD COUNT 11.6 TH/MM3 (4.0-11.0)
--- NOTE | 2016-11-24 21:05 | RADRPT ---
EXAM DATE/TIME: 11/24/2016 20:40 [facility] COMPARISON: CHEST SINGLE AP, October 31, 2016, 5:47. INDICATIONS : Neck pain for three weeks, migrating into chest two days ago. MEDICAL HISTORY : None. SURGICAL HISTORY : Cardiac catheterization. ENCOUNTER: Initial ACUITY: 2 days PAIN SCORE: 4/10 LOCATION: Bilateral chest FINDINGS: Heart and mediastinum are unremarkable for technique. Mild left lung base atelectasis and/or infiltra te is seen. CONCLUSION: Mild left lung base atelectasis and/or infiltrate is seen. Keira Kowalski MD on November 24, 2016 at 21:02 Board Certified Radiologist. This report was verified electronically.
[2016-11-24 21:09] LABS: ANION GAP 8 MEQ/L (5-15); BICARBONATE 26.1 MEQ/L (21.0-32.0); BLOOD UREA NITROGEN 17 MG/DL (7-18); CHLORIDE 104 MEQ/L (98-107); CREATINE KINASE 167 U/L (39-308); GLOMERULAR FILTRATION RATE 78 ML/MIN (>89); POTASSIUM 3.5 MEQ/L (3.5-5.1); SODIUM (NA) 138 MEQ/L (136-145)
[2016-11-24 21:23] LABS: CKMB 0.9 NG/ML (0.5-3.6)
--- NOTE | 2016-11-25 22:56 | EKG ---
Date Performed: 11/24/2016 Time Performed: 20:05:11 PTAGE: 40 years EKG: Sinus rhythm NONSPECIFIC T-WAVE ABNORMALITY BORDERLINE ECG NO PREVIOUS TRACING DOCTOR: Cirilo Daigle Interpretating Date/Time 11/25/2016 22:54:12
== END 2016-11-25 01:00 | disposition left against medical advice (07) ==
LOC: NED 19:41
DX: M54.2 Cervicalgia (principal); Z53.21 Procedure and treatment not carried out due to patient leaving prior to being seen by health care provider; M25.512 Pain in left shoulder; R94.31 Abnormal electrocardiogram [ECG] [EKG]
CPT/HCPCS: 71010; 80048; 82550; 82552; 84484; 85025; 93005

== ENCOUNTER 2017-11-01 17:45 | Emergency (ER) | payer OTHER ==
[~2017-11-01] VITALS: Ht 182.9 cm; Wt 135.0 kg
[~2017-11-01 17:45] MED LIST changes: +ASPI-183 PO; -ASPI325T PO; -PERC7.5T13 PO
[2017-11-01 17:49] VITALS: BP 214/115; PULSE 100; RESP 18; TEMP 97.6; O2SAT 99
[2017-11-01 17:59] VITALS: BP 162/115; PULSE 93; RESP 18; TEMP 97.7; O2SAT 97
[2017-11-01 18:12] LABS: BASOPHIL # 0.1 TH/MM3 (0-0.2); BASOPHIL % 0.5 % (0.0-2.0); EOSINOPHIL # 0.2 TH/MM3 (0-0.4); EOSINOPHIL % 1.8 % (0.0-4.0); HEMATOCRIT 44.1 % (39.0-51.0); HEMOGLOBIN 14.8 GM/DL (13.0-17.0); LYMPH % 35.8 % (9.0-44.0); LYMPHOCYTE # 4.6 TH/MM3 (1.0-4.8); MEAN CORPUSCULAR HEMOGLOBIN 26.2 PG (27.0-34.0); MEAN CORPUSCULAR HGB CONC 33.5 % (32.0-36.0); MEAN PLATELET VOLUME 9.1 FL (7.0-11.0); MONO % 6.1 % (0.0-8.0); MONOCYTE # 0.8 TH/MM3 (0-0.9); NEUT % 55.8 % (16.0-70.0); PLATELET COUNT 324 TH/MM3 (150-450); RED BLOOD COUNT 5.65 MIL/MM3 (4.50-5.90); RED CELL DISTRIBUTION WIDTH 14.8 % (11.6-17.2); WHITE BLOOD COUNT 12.7 TH/MM3 (4.0-11.0)
[2017-11-01] MEDS ORDERED: ASPIRIN 325 MG TAB PO ONE (18:15)
[2017-11-01] MEDS ORDERED: SODIUM CHLORIDE 0.9% FLUSH 10 ML FLUSH IVF PRN (18:15)
--- NOTE | 2017-11-01 18:15 | PD ---
HPI Chief Complaint: Chest Pain Time Seen by Provider: 18:08 Travel History International Travel<30 days: No Contact w/Intl Traveler<30days: No Traveled to known affect area: No History of Present Illness HPI Patient presents with complaints of chest pain. Describes a shock type feeling to his left lateral pectoral that lasted several seconds it relieved and a minute later reoccurred. Patient was sitting. Occurred after a meal while he was ordering food for his children. Patient got scared and proceeded to the ER for evaluation. Occurred approximate 30 minutes prior to arrival. He is not a smoker. Nondiabetic. No cardiac disease. No family history of cardiac disease. Denies radiation shortness of breath or diaphoresis. Reports catheterization 1 year ago which was normal. Past medical history of hypertension. Denies hyperlipidemia. PFSH Past Medical History Arthritis: No Heart Rhythm Problems: No Cancer: No Cardiac Catheterization: Yes (04/12) Cardiovascular Problems: Yes (HTN) High Cholesterol: No Chest Pain: Yes Congestive Heart Failure: No Cerebrovascular Accident: No Diminished Hearing: No Endocrine: No Gastrointestinal Disorders: No GERD: No Genitourinary: No Headaches: No Hiatal Hernia: No Hypertension: Yes Immune Disorder: No Inguinal Hernia: Yes Implanted Vascular Access Dvce: No Musculoskeletal: No Neurologic: No Psychiatric: No Reproductive: No Respiratory: No Immunizations Current: Yes Migraines: No Seizures: No Ulcer: No Influenza Vaccination: No Past Surgical History Abdominal Surgery: Yes (HERNIA REPAIR) Cardiac Surgery: No Ear Surgery: No Endocrine Surgery: No Eye Surgery: No Genitourinary Surgery: No Gynecologic Surgery: No Neurologic Surgery: No Oral Surgery: No Thoracic Surgery: No Other Surgery: Yes (Bilateral inguinal hernia surgeries) Social History Alcohol Use: No Tobacco Use: No Substance Use: No Allergies-Medications (Allergen,Severity, Reaction): Coded Allergies: No Known Allergies (Unverified Adverse Reaction, Unknown, 11/01/17) Reported Meds & Prescriptions Reported Meds & Active Scripts Active Reported Amlodipine (Amlodipine Besylate) 2.5 Mg Tab 0.5 Mg PO BID Lisinopril-Hctz 20-25 Mg Tab 1 Tab PO DAILY Carvedilol 12.5 Mg Tab 12.5 Mg PO BID Aspirin 325 Mg Tab 325 Mg PO DAILY Review of Systems General / Constitutional: No: Fever Eyes: No: Visual changes HENT: No: Headaches Cardiovascular: Positive: Chest Pain or Discomfort Respiratory: No: Shortness of Breath Gastrointestinal: No: Abdominal Pain Genitourinary: No: Dysuria Musculoskeletal: No: Pain Skin: No Rash Neurologic: No: Weakness Psychiatric: No: Depression Endocrine: No: Polydipsia Hematologic/Lymphatic: No: Easy Bruising Physical Exam Narrative GENERAL: Well-nourished, well-developed patient. SKIN: Focused skin assessment warm/dry. HEAD: Normocephalic. EYES: No scleral icterus. No injection or drainage. NECK: Supple, trachea midline. No JVD or lymphadenopathy. CARDIOVASCULAR: Regular rate and rhythm without murmurs, gallops, or rubs. RESPIRATORY: Breath sounds equal bilaterally. No accessory muscle use. GASTROINTESTINAL: Abdomen soft, non-tender, nondistended. MUSCULOSKELETAL: No cyanosis, or edema. BACK: Nontender without obvious deformity. No CVA tenderness. Data Data Last Documented VS Vital Signs Date Time Temp Pulse Resp B/P (MAP) Pulse Ox O2 Delivery O2 Flow Rate FiO2 11/01/17 17:59 97.7 93 18 162/115 (131) 97 Room Air Orders Orders Electrocardiogram (11/01/17 17:58) Complete Blood Count With Diff (11/01/17 17:58) Chest, Single Ap (11/01/17 17:58) Iv Access Insert/Monitor (11/01/17 17:58) Ecg Monitoring (11/01/17 17:58) Oxygen Administration (11/01/17 17:58) Oximetry (11/01/17 17:58) Electrocardiogram (11/01/17 18:08) Ckmb (Isoenzyme) Profile (11/01/17 18:08) Comprehensive Metabolic Panel (11/01/17 18:08) Magnesium (Mg) (11/01/17 18:08) Prothrombin Time / Inr (Pt) (11/01/17 18:08) Act Partial Throm Time (Ptt) (11/01/17 18:08) Troponin I (11/01/17 18:08) Bilateral Bp Monitoring (11/01/17 18:08) Aspirin (Aspirin) (11/01/17 18:15) Sodium Chloride 0.9% Flush (Ns Flush) (11/01/17 18:15) CKMB (11/01/17 17:55) CKMB% (11/01/17 17:55) Potassium Chloride (Kcl) (4/7/18 19:15) Labs Laboratory Tests Test 11/01/17 17:55 11/01/17 18:00 White Blood Count 12.7 TH/MM3 Red Blood Count 5.65 MIL/MM3 Hemoglobin 14.8 GM/DL Hematocrit 44.1 % Mean Corpuscular Volume 78.0 FL Mean Corpuscular Hemoglobin 26.2 PG Mean Corpuscular Hemoglobin Concent 33.5 % Red Cell Distribution Width 14.8 % Platelet Count 324 TH/MM3 Mean Platelet Volume 9.1 FL Neutrophils (%) (Auto) 55.8 % Lymphocytes (%) (Auto) 35.8 % Monocytes (%) (Auto) 6.1 % Eosinophils (%) (Auto) 1.8 % Basophils (%) (Auto) 0.5 % Neutrophils # (Auto) 7.0 TH/MM3 Lymphocytes # (Auto) 4.6 TH/MM3 Monocytes # (Auto) 0.8 TH/MM3 Eosinophils # (Auto) 0.2 TH/MM3 Basophils # (Auto) 0.1 TH/MM3 CBC Comment DIFF FINAL Differential Comment Blood Urea Nitrogen 13 MG/DL Creatinine 1.20 MG/DL Random Glucose 110 MG/DL Total Protein 8.1 GM/DL Albumin 3.7 GM/DL Calcium Level 8.6 MG/DL Magnesium Level 2.1 MG/DL Alkaline Phosphatase 129 U/L Aspartate Amino Transf (AST/SGOT) 22 U/L Alanine Aminotransferase (ALT/SGPT) 25 U/L Total Bilirubin 0.4 MG/DL Sodium Level 137 MEQ/L Potassium Level 3.3 MEQ/L Chloride Level 104 MEQ/L Carbon Dioxide Level 25.9 MEQ/L Anion Gap 7 MEQ/L Estimat Glomerular Filtration Rate 67 ML/MIN Total Creatine Kinase 286 U/L Creatine Kinase MB 1.4 NG/ML Troponin I LESS THAN 0.02 NG/ML Prothrombin Time 10.5 SEC Prothromb Time International Ratio 1.0 RATIO Activated Partial Thromboplast Time 27.3 SEC [facility] Medical Decision Making Medical Screen Exam Complete: Yes Emergency Medical Condition: Yes Differential Diagnosis ACS, musculoskeletal pain, pleurisy, muscle spasm, lower cervical upper thoracic radiculopathy Narrative Course Assessment plan discussed with patient and at bedside. EKG reveals a sinus tachycardia with no specific T-wave abnormality. Rate of 101. Cardiac enzymes negative. Hypokalemia noted and replaced. I do not necessarily feel he is cannulated for chest pain clinic since he had a normal catheterization 1 year ago. Last 72 hours Impressions Chest X-Ray 11/01/17 3418 Signed Impressions: Service Date/Time: Wednesday, November 01, 2017 18:10 - CONCLUSION: No acute disease. Howard Rivas MD Diagnosis Primary Impression: Atypical chest pain Patient Instructions: General Instructions Additional Instructions: Encouraged rest. Follow-up with PCP. Return to emerge from with any onset of new symptoms. Med/Other Pt SpecificInfo: No Meds Exist/No RX given Disposition: 01 DISCHARGE HOME Condition: Good Chong Rascon MD Nov 01, 2017 18:15
--- NOTE | 2017-11-01 18:29 | RADRPT ---
EXAM DATE/TIME: 11/01/2017 18:10 [facility] COMPARISON: CHEST SINGLE AP, November 24, 2016, 20:40. INDICATIONS : Chest pain MEDICAL HISTORY : Hypertension. SURGICAL HISTORY : None. ENCOUNTER: Initial ACUITY: 1 day PAIN SCORE: 2/10 LOCATION: Left chest FINDINGS: The heart size is upper limits of normal. The lungs are grossly clear. No effusion is seen. CONCLUSION: No acute disease. Howard Rivas MD on November 01, 2017 at 18:26 Board Certified Radiologist. This report was verified electronically.
[2017-11-01 18:32] LABS: CHLORIDE 104 MEQ/L (98-107); SODIUM (NA) 137 MEQ/L (136-145)
[2017-11-01 18:35] LABS: ALBUMIN 3.7 GM/DL (3.4-5.0); CALCIUM 8.6 MG/DL (8.5-10.1)
[2017-11-01 18:36] LABS: BICARBONATE 25.9 MEQ/L (21.0-32.0); BLOOD UREA NITROGEN 13 MG/DL (7-18); GLUCOSE,RANDOM 110 MG/DL (74-106); MAGNESIUM 2.1 MG/DL (1.5-2.5)
[2017-11-01 18:39] LABS: ALT (GPT) 25 U/L (12-78); AST (GOT) 22 U/L (15-37); GLOMERULAR FILTRATION RATE 67 ML/MIN (>89)
[2017-11-01 18:41] LABS: TOTAL BILIRUBIN ADULT 0.4 MG/DL (0.2-1.0); TOTAL PROTEIN 8.1 GM/DL (6.4-8.2)
[2017-11-01 18:42] LABS: ALKALINE PHOSPHATASE 129 U/L (45-117)
[2017-11-01 18:44] LABS: TROPONIN I LESS THAN 0.02 NG/ML (0.02-0.05)
[2017-11-01 18:50] LABS: PROTHROMBIN TIME - PATIENT 10.5 SEC (9.8-11.6)
[2017-11-01] MEDS ORDERED: POTASSIUM CHLORIDE 20 MEQ CONTROLLED RELEASE TAB PO ONE (19:15)
[2017-11-01 19:16] VITALS: BP_SYST 151; BP_SYST 167; BP_DIAS 87; BP_DIAS 96; PULSE 87; RESP 18; O2SAT 97
--- NOTE | 2017-11-02 16:25 | EKG ---
Date Performed: 11/01/2017 Time Performed: 17:48:54 PTAGE: 41 years EKG: SINUS TACHYCARDIA NONSPECIFIC T-WAVE ABNORMALITY Since the previous tracing, no significant change noted ABNORMAL RHYTHM ECG PREVIOUS TRACING : 11/24/2016 20.05 DOCTOR: Bowen Bustillo Interpretating Date/Time 11/02/2017 16:23:06
== END 2017-11-01 19:26 | disposition home or self-care (01) ==
LOC: PHED 17:45
DX: R07.89 Other chest pain (principal); R94.31 Abnormal electrocardiogram [ECG] [EKG]; I10 Essential (primary) hypertension
CPT/HCPCS: 71045; 80053; 82550; 82552; 83735; 84484; 85025; 85610; 85730; 93005